=== PATIENT | male | born 1995 | race Caucasian/White ===

== ENCOUNTER 2023-07-18 21:46 | Emergency (ER) | payer MEDICAID ==
[~2023-07-18] VITALS: Ht 172.7 cm; Wt 79.0 kg
[2023-07-18 21:50] VITALS: O2SAT 97
[2023-07-18] MEDS ORDERED: SODIUM CHLORIDE 0.9% 1,000 ML IV ONE ×2 (23:30)
[2023-07-19 00:33] LABS: BASOPHILS % 1.1 % (0.0-2.0); EOSINOPHILS % 2.3 % (0.0-5.0); HEMATOCRIT. 42.5 % (42.0-52.0); HEMOGLOBIN. 14.1 g/dL (14.0-18.0); LYMPHOCYTES % 39.5 % (20.0-50.0); MEAN CORPUSCULAR HGB CONC 33.2 g/dL (31.0-37.0); MEAN CORPUSCULAR VOLUME 93.4 fL (80.0-94.0); MEAN PLATELET VOLUME 6.7 fl (7.4-10.4); MONOCYTES % 6.3 % (2.0-8.0); NEUTROPHILS % 50.8 % (40.0-76.0); PLATELET 367 x1000/uL (130-400); RED BLOOD CELL COUNT 4.55 mill/uL (4.7-6.1); RED CELL DISTRIBUTION WIDTH 14.9 % (11.6-14.6); WHITE BLOOD COUNT 5.3 x1000/uL (4.5-11.0)
[2023-07-19 01:13] LABS: ALANINE AMINOTRANSFERASE 24 IU/L (10-49); ALBUMIN 4.2 g/dL (3.2-4.8); ASPARTATE AMINOTRANSFERASE 27 IU/L (<34); BILIRUBIN TOTAL 0.4 mg/dL (0.1-1.0); CALCIUM 8.5 mg/dL (8.7-10.4); CARBON DIOXIDE 25 mEq/L (21-32); CHLORIDE 108 mEq/L (98-107); CREATININE 0.6 mg/dL (0.6-1.3); GLUCOSE 95 mg/dL (70-105); POTASSIUM 3.8 mEq/L (3.5-5.1); PROTEIN TOTAL 6.8 g/dL (6.0-8.3); SODIUM 142 mEq/L (136-145); UREA NITROGEN BLOOD 9 mg/dL (9-23)
[2023-07-19 01:42] LABS: ETHANOL BLOOD 423 mg/dL (<10)
[2023-07-19] MEDS ORDERED: IOHEXOL-300 100 ML BOTTLE ONE (02:49)
[2023-07-19 06:15] VITALS: BP 104/70; PULSE 71; RESP 19; TEMP 97.6
== END 2023-07-19 07:36 | disposition home or self-care (01) ==
LOC: ER 21:46
DX: S01.111A Laceration without foreign body of right eyelid and periocular area, initial encounter (principal); T51.0X1A Toxic effect of ethanol, accidental (unintentional), initial encounter; W18.39XA Other fall on same level, initial encounter; Y93.89 Activity, other specified; Y99.8 Other external cause status; Y92.89 Other specified places as the place of occurrence of the external cause
CPT/HCPCS: 80053; 80320; 83605; 83690; 85025; 86850; 86900; 86901; 36415; 71045; 96360; 96361; 99284; 70450; 72125; 74177; J7030; Q9967; G0480